=== PATIENT | female | born 1980 | race Caucasian/White ===

== ENCOUNTER → 2020-09-07 | Outpatient (CLI) | payer MEDICAID ==
--- NOTE | 2020-09-07 14:15 | US ---
EXAMINATION TYPE: US transvaginal DATE OF EXAM: 09/07/2020 COMPARISON: NONE CLINICAL HISTORY: N92.0 Excessive and frequent menstruation with reg. Heavy bleeding. TECHNIQUE: Transvaginal (TV). EXAM MEASUREMENTS: Uterus: 7.9 x 4.5 x 5.2 cm Endometrial Stripe: .2 cm Right Ovary: 2.9 x 2.4 x 2.1 cm Left Ovary: 3.3 x 2.6 x 2.7 cm 1. Uterus: Anteverted wnl 2. Endometrium: Small amount of fluid visualized 1 mm. Right Ovary: Follicles seen. 4. Left Ovary: Follicles seen. 5. Bilateral Adnexa: wnl 6. Posterior cul-de-sac: wnl Heterogeneous uterus. Tiny amount of free fluid in the endometrial canal. Endometrium not suspiciousl y thickened. No free fluid. Both ovaries identified with scattered peripheral follicles. No suspicious extraovarian adnexal linda s. IMPRESSION: Small amount of free fluid in the endometrial canal otherwise unremarkable study.
== END | disposition home or self-care (01) ==
LOC: RADUSWWP 12:50
PROVIDERS: ATTEND Obstetrics & Gynecology
DX: R93.89 Abnormal findings on diagnostic imaging of other specified body structures (principal); N92.0 Excessive and frequent menstruation with regular cycle
CPT/HCPCS: 76830

== ENCOUNTER 2021-01-18 05:33 | Day surgery (SDC) | payer MEDICAID, OTHER ==
[2021-01-16 14:13] VITALS: BMI 23.6
--- NOTE | 2021-01-17 12:46 | P.HPOB ---
History of Present Illness H&P Date: 01/17/21 Chief Complaint: Menorrhagia and also requesting permanent sterilization This patient is a pleasant 40-year-old 2 para 2 female who presented to me requesting endometrial ablation for menorrhagia and also requesting permanent sterilization. Patient's had a long-standing history of heavy and frequent menses. Evaluation has included an ultrasound which was normal. Patient has requested ablation for treatment however does need a form of control as requested tubal cauterization at the same time. Review of Systems Genitourinary: Reports menorrhagia Menstruation: Reports cycle variable, Reports period heavy Past Medical History Past Medical History: GERD/Reflux, Musculoskeletal Disorder Additional Past Medical History / Comment(s): seasonal allergies, protrusion L5, recent steroid use History of Any Multi-Drug Resistant Organisms: None Reported Past Surgical History: Adenoidectomy, Breast Surgery Additional Past Surgical History / Comment(s): myringotomy/tubes, LEEP, breast augmentation, wisdom teeth removed, lasik eye surg. Past Anesthesia/Blood Transfusion Reactions: Motion Sickness, Postoperative Nausea & Vomiting (PONV) Past Psychological History: No Psychological Hx Reported Smoking Status: Former smoker Past Alcohol Use History: None Reported Past Drug Use History: None Reported Medications and Allergies Home Medications Medication Instructions Recorded Confirmed Type Fluticasone Nasal [place] [Flonase 2 spr EA NOSTRIL DAILY 01/16/21 01/16/21 History Nasal [place]] Loratadine [Alavert] 10 mg PO DAILY PRN 01/16/21 01/16/21 History Omeprazole [PriLOSEC] 20 mg PO AC-[id number] 01/16/21 01/16/21 History Allergies Allergy/AdvReac Type Severity Reaction Status Date / Time No Known Allergies Allergy Verified 01/16/21 12:56 Exam - OBG Physical Exam Abdomen: bowel sounds normal, no diffuse tenderness, no bruit present, no guarding noted, no hepatomegaly, no splenomegaly, no mass Vulva: both: normal Vagina: normal moisture, no discharge Cervix: no lesion, no discharge Uterus: normal size, normal contour Assessment and Plan Assessment: This is a pleasant 40-year-old 2 para 2 female with long-standing menorrhagia requesting endometrial ablation also requesting permanent sterilization. Plan is laparoscopic bilateral fallopian tube cauterization , hysteroscopy with D&C and NovaSure endometrial ablation. I long discussion with the patient in regards to a tubal ligation the fact that it is considered permanent, however there is a failure rate of less than 5 per thousand procedures done. She understands if she did become she has a 50% chance of a tubal or an ectopic . Patient also understands that laparoscopic surgery and apparently has risks and risks of infection, bleeding, possible injury bowel, bladder, vessels, and/or other organs. I also discussed the NovaSure procedure with her and risks including risks of infection, bleeding, possible thermal injury and/or uterine perforation. All the patient's questions are answered written consent is obtained. Patient's also had a recent steroid course due to low back problems and therefore she'll be given a Medrol Dosepak post surgery. (1) Menorrhagia Status: Chronic Code(s): N92.0 - EXCESSIVE AND FREQUENT MENSTRUATION WITH REGULAR CYCLE SNOMED Code(s): 671768909 (2) Family planning Status: Acute Code(s): Z30.09 - ENCOUNTER FOR OT GENERAL CNSL AND ADVICE ON CONTRACEPTION SNOMED Code(s): 084563377
[~2021-01-18 05:33] MED LIST: Pre Op ABX Message 1 EACH MISC MISCELLANE ONE
[2021-01-18] MEDS ORDERED: LACTATED RINGERS 1,000 ML IV SCH (05:46)
[2021-01-18] MEDS ORDERED: ONDANSETRON 4 MG/2 ML VIAL ONE (06:15)
[2021-01-18] MEDS ORDERED: DEXAMETHASONE SOD PHOSPHATE 4 MG/ML 1 ML VIAL IVP ONE (06:22)
[2021-01-18] MEDS ORDERED: LACTATED RINGERS 1,000 ML IV ONE (06:22)
[2021-01-18] MEDS ORDERED: SCOPOLAMINE 1.5MG/72HR PATCH TRANSDERM ONE (06:23)
[2021-01-18 06:28] LABS: Glucose,Whole Blood 82 mg/dL (75-99)
[2021-01-18] MEDS ORDERED: SUCCINYLCHOLINE CHLORIDE 100 MG/5 ML SYR IV ONE (06:57)
[2021-01-18] MEDS ORDERED: GLYCOPYRROLATE 0.2 MG/ML 2 ML VIAL ONE (06:57)
[2021-01-18] MEDS ORDERED: DEXAMETHASONE SOD PHOSPHATE 10 MG/ML 1 ML VIAL ONE (06:57)
[2021-01-18] MEDS ORDERED: NEOSTIGMINE 1 MG/ML 10 ML VIAL ONE (06:57)
[2021-01-18] MEDS ORDERED: ROCURONIUM 10 MG/ML (5 ML VIAL) IV ONE (06:57)
[2021-01-18] MEDS ORDERED: LIDOCAINE 1% INJ 10MG/ML (20 ML MDV) ONE (06:57)
[2021-01-18] MEDS ORDERED: fentaNYL (PF) 50 MCG/ML 2 ML AMP ONE (06:57)
[2021-01-18] MEDS ORDERED: PROPOFOL 10 MG/ML 20 ML VIAL IV ONE (06:57)
[2021-01-18] MEDS ORDERED: KETOROLAC 15 MG/ML 1 ML VIAL ONE (06:57)
[2021-01-18] MEDS ORDERED: MIDAZOLAM 2 MG/2 ML VIAL ONE (06:57)
[2021-01-18] MEDS ORDERED: BUPIVACAINE (PF) 0.5% 30 ML VIAL SQ ONE (07:18)
[2021-01-18 07:58] VITALS: TEMP 97
--- NOTE | 2021-01-18 08:07 | P.OP ---
Date of Procedure: 01/18/21 Preoperative Diagnosis: #1: Menorrhagia. #2: Multi parity desires permanent sterilization Postoperative Diagnosis: Same Procedure(s) Performed: #1: Laparoscopic bilateral fallopian tube cauterization. #2: Hysteroscopy. #3: Dilation and curettage. #4: NovaSure endometrial ablation. Anesthesia: [id number] Surgeon: Simón Maynard Estimated Blood Loss (ml): 20 Urine output (ml): 25 Pathology: other (Uterine curettings) Condition: stable Disposition: PACU Indications for Procedure: Please see dictated H&P for intimate details of this patient's admission. Brief summary this is a pleasant 40-year-old multiparous patient with long-standing menorrhagia who is requesting endometrial ablation also requesting permanent sterilization. Patient I discussed the fact that a tubal ligation is considered permanent however there is a failure rate of less than 5 per thousand procedures done. She also understands that the surgery and apparently has risks including risks of infection, bleeding, possible injury bowel, bladder, vessels, and/or other organs. She also understands that the ablation has risks similarly infection bleeding but also the additional risk of uterine perforation and/or thermal injury. All the patient's questions are answered and a written consent is obtained. Operative Findings: This patient normal appearing uterus tubes and ovaries. Normal-appearing upper abdomen grossly. Description of Procedure: This patient is taken to the operating room where she is laid in the supine position. She subsequent undergoes general endotracheal anesthesia without incident. With an adequate level of anesthesia was placed in dorsal lithotomy position. She has a vaginal, perineal, abdominal prep and drape. I first good on below placed a weighted speculum posterior vagina. Anterior lip of the cervix is grasped and a acorn cannula is gently placed into the endocervix and attached to the cervix with an Allis clamp. I then place a red Landis and deliver bladder and leave this in place. I then changed gloves. I then go up above and make a 10 mm infraumbilical incision. Through this incision a 10 mm bladed lists optical trochars placed With peritoneal placement confirmed, pneu moperitoneum is created to 12 mm of carbon dioxide gas. Then approximately 2 finger breaths above the symphysis pubis I make a 5 mm incision. Using a 5 mm bladed lists optical trocar I place this under direct visualization. Using a blunt probe I move the uterus tubes and ovaries all appears normal. Using bipolar cautery then grasped the left fallopian tube approximately 4 cm from the cornual insertion and a 2-3 cm segment of tube is completely cauterized as demarcated by the volt meter this is using bipolar cautery. Similar technique is done on the right side with similar results. With this completed the lower trochars removed and good hemostasis is noted. Pneumoperitoneum is reduced and the upper trochars removed. Incisions are then closed using a 4-0 Vicryl interrupted fashion. Sterile dressing and Steri-Strips are applied. We then go down below remove the acorn cannula. The weighted speculum is placed back into the vagina and the cervix is then weighted and the uterus sounded to 8-1/2 cm. This completed the hysteroscopy is then performed using saline solution. Uterine cavity appears normal. This completed, a gentle but thorough 4 quadrant curettage is done. NovaSure device is then opened and set at a length of 6.0 cm. It is seated in place and opens up to a width of 3.6 cm. It is then enabled and passes the cavity integrity test. The NovaSure device is then fired and then after approximately 1 minute removed. The NovaSure device appears intact. Hysteroscopy is performed again and the uterine cavity appears normal. Excellent results are noted. This completed the procedure is ended. The Allis clamp and weighted speculum removed. All counts are correct 3. Patient is awakened from anesthesia and taken recovery room in satisfactory condition. Th ere are no complications.
[2021-01-18 09:35] VITALS: RESP 16
[2021-01-18 09:50] VITALS: BP 128/80; PULSE 65
== END 2021-01-18 10:15 | disposition home or self-care (01) ==
LOC: OR 05:33
PROVIDERS: ATTEND Obstetrics & Gynecology
DX: N92.0 Excessive and frequent menstruation with regular cycle (principal); Z30.2 Encounter for sterilization; K21.9 Gastro-esophageal reflux disease without esophagitis; J30.2 Other seasonal allergic rhinitis; M51.26 Other intervertebral disc displacement, lumbar region; Z90.89 Acquired absence of other organs; Z98.890 Other specified postprocedural states; Z98.82 Breast implant status; Z87.898 Personal history of other specified conditions; Z91.89 Other specified personal risk factors, not elsewhere classified; Z87.891 Personal history of nicotine dependence; Z79.899 Other long term (current) drug therapy
CPT/HCPCS: 81025; 88305; 58670; 58563; J2250; J1100 ×2; J2710; J2405; J2001; J3010; J1885; J0330; J2704